=== PATIENT | female | born 1985 | race Caucasian/White ===

== ENCOUNTER 2018-10-27 06:08 | Inpatient (IN) | payer OTHER ==
[~2018-10-27 06:08] MED LIST: Buffered Lidocaine 1% SYRIN* 1 ML/SYRINGE INTRADERM ONE; Lactated Ringers 1000 ML Bag* 1,000 ML IV SCH; Sodium Citrate/Citric Acid* 15 ML UDC PO ONE
[2018-10-27] MEDS ORDERED: ceFOXitin(*) 2 GM in NS 0.9% 100 ML* 100 ML IVPB ONE (07:00)
[2018-10-27] MEDS ORDERED: Morphine PF AMP (0.5MG/ML)* 5 MG/10 ML AMP ONE (07:31)
[2018-10-27] MEDS ORDERED: Naloxone* 0.4 MG/ML 1 ML VIAL IV PRN ×2 (07:38→08:35)
[2018-10-27] MEDS ORDERED: OXYTOCIN* 10 UNITS/ML 1 ML VIAL ONE (07:51)
[2018-10-27] MEDS ORDERED: Ondansetron INJ* 2 MG/ML VIAL IV PRN (08:35)
[2018-10-27] MEDS ORDERED: Nalbuphine* 10 MG/ML 1 ML VIAL IV PRN (08:35)
[2018-10-27 09:13] LABS: Urine Benzodiazepine Screen None Detected (None Detect); Urine Opiates Screen None Detected (None Detect)
[2018-10-27] MEDS ORDERED: Phenylephrine 10 MG/ML VIAL* 1 ML VIAL ONE (09:13)
[2018-10-27] MEDS ORDERED: Glycerin ADULT SUPP PR PRN (09:36)
[2018-10-27] MEDS ORDERED: Witch Hazel PAD* JAR TOPICAL PRN (09:36)
[2018-10-27] MEDS ORDERED: Dibucaine 1% 28.35 GM TUBE PR PRN (09:36)
[2018-10-27] MEDS ORDERED: oxyCODONE/Acetamin 5/325 MG* TAB PO PRN (09:36)
[2018-10-27] MEDS ORDERED: Zolpidem TAB* 5 MG PO PRN (09:36)
[2018-10-27] MEDS ORDERED: Ibuprofen TAB* 600 MG PO PRN (09:36)
[2018-10-27] MEDS ORDERED: Lactated Ringers 1000 ML Bag* 1,000 ML IV SCH (10:00)
[2018-10-27] MEDS ORDERED: Oxytocin in LR* 20 UNITS/1,000 ML BAG IVPB SCH (10:00)
--- NOTE | 2018-10-27 10:32 | OP ---
OPERATIVE REPORT: DATE OF OPERATION: 10/27/18 DATE OF : 87 SURGEON: Ward Rosales MD [employer]EC[employer]IVE [employer] TEAM: Lacy Lion CNM ANESTHESIA: Spinal. PRE-OP DIAGNOSIS: Previous . POST-OP DIAGNOSES: Previous plus meconium, macrosomia. OPERATIVE PROCEDURE: Low transverse section. ESTIMATED BLOOD LOSS: 600 cc. SPECIMENS: None. FLUIDS: 2 L of crystalloid. FINDINGS: Include a viable male, Apgars 9 and 9, weight was 10 pounds, 10 ounces. normal-appearing u terus, fallopian tubes, and ovaries. DESCRIPTION OF PROCEDURE: The patient identified and procedure identified as a low transverse gautam an section. The patient was taken to the operating room, prepped and draped in the usual fashion in the left lateral recumbent position under spinal anesthesia. A Pfannenstiel incision was made throug h the old incision and carried down through fat, fascia, and peritoneum. A transverse incision was m dav in the lower uterine segment and extended laterally using the blunt dissection. The above was delivered through the incision after use of the vacuum to deliver the head. The cord was doubly clamped and cut, the infant was handed to awaiting waiter/waitress formal, cord blood was obtained. The place nta was delivered manually. The uterus was wiped out with a lap sponge. Uterine incision was then c losed using 0 Polysorb in a running fashion, a second layer was used to imbricate the first layer. H emostasis was verified. The peritoneum was then closed in 3-0 Polysorb in a running fashion. Good h emostasis was verified in the sub rectus tissues. The fascia was closed in 0-Polysorb in a running f ashion. Good hemostasis was achieved in the subcu and copious irrigation was then suctioned out and the skin was closed using 4-0 Monocryl in a subcuticular fashion. All sponge and instrument counts w ere correct and the patient returned to recovery room in stable condition. [id number]/[facility] #: [id number]
[2018-10-27] MEDS ORDERED: DiMENhydriNATE IV* 50 MG/ML VIAL IV PUSH PRN (11:31)
[2018-10-27] MEDS ORDERED: Morphine 4 MG/ML VIAL (1 ml) 4 MG/ML VIAL IV ONE (11:35)
[2018-10-27] MEDS: Ibuprofen TAB* 400 MG PO SCH ×3 (12:23→19:43)
[2018-10-27] MEDS: oxyCODONE/Acetamin 5/325 MG* TAB PO PRN ×2 (16:10→19:43)
[2018-10-27] MEDS: Docusate CAP* 100 MG PO SCH ×2 (16:10→19:43)
[2018-10-27] MEDS: Simethicone TAB* 80 MG TAB.CHEW PO SCH (19:42)
[2018-10-28] MEDS: oxyCODONE/Acetamin 5/325 MG* TAB PO PRN ×4 (00:07→22:46)
[2018-10-28] MEDS: Ibuprofen TAB* 400 MG PO SCH ×4 (03:21→18:36)
[2018-10-28 07:35] LABS: Hematocrit 32 % (35-47); Hemoglobin 10.7 g/dL (12.0-16.0); Mean Corpuscular HGB Conc 33 g/dL (31-36); Mean Corpuscular Hemoglobin 23 pg (27-31); Mean Corpuscular Volume 70 fL (80-97); Red Blood Count 4.62 10^6 /uL (3.70-4.87); Red Cell Distribution Width 16 % (10-15); White Blood Count 12.5 10^3/uL (3.5-10.8)
[2018-10-28 08:05] LABS: Platelet Count 72 10^3/uL (150-450)
[2018-10-28 08:08] LABS: ABS Eosinophils 0.1 10^3/ul (0-0.6); ABS Lymphocytes 1.9 10^3/ul (1.0-4.8); ABS Monocytes 0.9 10^3/ul (0-0.8); ABS Neutrophils 9.5 10^3/ul (1.5-7.7); Eosinophil % 1.1 %; Lymphocyte % 15.5 %; Microcytosis 1+; Polychromasia 1+; Tear Drop Cells 2+
[2018-10-28] MEDS ORDERED: Ferrous Gluconate TAB* 324 MG TAB PO SCH (09:00)
[2018-10-28] MEDS: Acetaminophen TAB* 325 MG PO PRN ×2 (10:03→15:51)
[2018-10-28] MEDS: Docusate CAP* 100 MG PO SCH ×3 (10:04→20:36)
[2018-10-28] MEDS: Simethicone TAB* 80 MG TAB.CHEW PO SCH ×5 (10:04→20:36)
[2018-10-29] MEDS: Ibuprofen TAB* 400 MG PO SCH ×2 (00:50→06:54)
[2018-10-29 08:04] VITALS: BP 118/69
[2018-10-29] MEDS: Docusate CAP* 100 MG PO SCH ×2 (09:32→13:54)
[2018-10-29] MEDS: Simethicone TAB* 80 MG TAB.CHEW PO SCH ×2 (09:32→13:54)
[2018-10-29] MEDS ORDERED: Acetaminophen IV 1GM/100ML * 100 ML ONE (14:44)
== END 2018-10-29 17:00 | disposition home or self-care (01) | DRG 788 ==
LOC: MCHOB 06:08
PROVIDERS: ADMIT Obstetrics & Gynecology; ATTEND Obstetrics & Gynecology
PROC: 4A1HXCZ Monitoring of Products of Conception, Cardiac Rate, External Approach (ICD-10-PCS; 2018-10-27)
PROC: 10D00Z1 Extraction of Products of Conception, Low, Open Approach (ICD-10-PCS; principal; 2018-10-27 07:45)
DX: O34.211 Maternal care for low transverse scar from previous cesarean delivery (principal); O99.02 Anemia complicating childbirth; O77.0 Labor and delivery complicated by meconium in amniotic fluid; O36.63X0 Maternal care for excessive fetal growth, third trimester, not applicable or unspecified; Z3A.40 40 weeks gestation of pregnancy; Z37.0 Single live birth
CPT/HCPCS: 36415; 80307; 85025; A9270-GY; J0694; J2270; J2405; J2590